=== PATIENT | male | born 1980 | race Caucasian/White ===

== ENCOUNTER 2020-05-25 22:04 | Emergency (ER) | payer SELFPAY ==
[~2020-05-25] VITALS: Ht 172.7 cm; Wt 78.0 kg
[2020-05-25] MEDS ORDERED: SODIUM CHLORIDE 0.9% 1,000 ML IV ONE (22:45)
[2020-05-25] MEDS ORDERED: KETOROLAC 30MG/ML VIAL IV ONE (22:45)
[2020-05-25] MEDS ORDERED: PERMETHRIN 5% CREAM 60GM TOP ONE (22:45)
[2020-05-26 05:17] LABS: HEMATOCRIT 23.3 % (42.0-52.0); HEMOGLOBIN 7.8 g/dL (14.0-18.0); MEAN CORPUSCULAR HEMOGLOBIN 31.5 pg (28.0-32.0); RED BLOOD CELL COUNT 2.48 mill/uL (4.7-6.1); RED CELL DISTRIBUTION WIDTH 18.2 % (11.6-14.6)
[2020-05-26 05:24] LABS: CHLORIDE 107 mEq/L (98-107)
[2020-05-26 05:45] VITALS: BP 110/89
[2020-05-26 10:30] LABS: PLATELET 36 x1000/uL (130-400)
== END 2020-05-26 05:48 | disposition home or self-care (01) ==
LOC: ER 22:04
DX: B86 Scabies (principal); D69.6 Thrombocytopenia, unspecified; G89.29 Other chronic pain; Z59.0 Homelessness
CPT/HCPCS: 36415; 80053; 85027; 93005; 99284; J7030